=== PATIENT | male | born 1955 | race Caucasian/White ===

== ENCOUNTER 2019-05-26 05:54 | Observation (INO) | payer OTHER ==
--- NOTE | 2019-05-19 12:06 | HP ---
HISTORY AND PHYSICAL: DATE OF ADMISSION/SURGERY: 05/26/19 DATE OF OFFICE VISIT: 05/18/19 SURGEON: Sheba Farias MD * (DICTATED BY TOMAS YOUSSEF) PROCEDURE: Right total hip arthroplasty. CHIEF COMPLAINT: Right hip pain. HISTORY OF PRESENT ILLNESS: Mr. Jamison is a 63-year-old gentleman with end- stage osteoarthritis of the right hip. He has failed conservative treatment and elected to proceed with a right total hip arthroplasty. PAST MEDICAL HISTORY: 1. Diabetes. 2. Hypertension. 3. GERD. 4. High cholesterol. 5. Coronary artery disease. 6. Sleep apnea. PAST SURGICAL HISTORY: 1. Stent placement. 2. CABG. 3. Hernia repair x2. CURRENT MEDICATIONS: 1. Rosuvastatin calcium 10 mg a day. 2. Omeprazole 40 mg a day. 3. Metoprolol 50 mg a day. 4. Metformin 500 mg 3 times a day. 5. Acetamide 10 mg a day. 6. Lisinopril 40 mg a day. 7. Hydrochlorothiazide 25 mg a day. 8. Nitroglycerin 0.4 sublingual as needed. 9. Vitamin D3. 10. Vitamin B. 11. Cialis 20 mg a day as needed. 12. Aspirin 81 mg a day. ALLERGIES: No known drug allergies. FAMILY HISTORY: Coronary artery disease and cancer. SOCIAL HISTORY: He is a 63-year-old gentleman. He lives with his . He does not smoke or use drugs. Uses occasional alcohol. REVIEW OF SYSTEMS: A complete 14-point review of systems was reviewed with the patient. It is positive for diabetes and GERD. He denies history of DVT, PE, hepatitis, HIV, or anesthesia problems. PHYSICAL EXAMINATION GENERAL: He is well developed, well nourished, in no acute distress. VITAL SIGNS: He stands 5 feet 8 inches tall, weighs 220 pounds, his blood pressure is 150/78, his heart rate is 96. HEENT: Normocephalic, atraumatic. NECK: Supple. No palpable lymph nodes. PULMONARY: The lungs are clear to auscultation bilaterally. CARDIO: Regular rate and rhythm. Strong S1, S2. ABDOMEN: Soft, nontender, nondistended. NEUROLOGICAL: He is alert and oriented x3. MUSCULOSKELETAL: Right lower extremity: Skin is intact. There are no open wounds or abrasions. He has 85 degrees of hip flexion. He walks with an antalgic-type gait. He lacks 10 degrees from neutral, has 20 degrees of external rotation, 0 degrees of internal rotation. He is able to dorsiflex and plantar flex. He has 2+ dorsalis pedis pulse and intact sensation. ASSESSMENT AND PLAN: Mr. Jamison is a 63-year-old gentleman with severe end- stage osteoarthritis of the right hip. He has failed conservative treatment and elected to proceed with a right total hip arthroplasty. The surgery is scheduled for 05/26/[address] Farias has discussed the risks and benefits of the surgery at today's visit and all of his questions were answered. He will follow up with Dr. Farias 2 weeks after the surgery. TOMAS YOUSSEF [id number]/CPS #: [id number] MTDAllyssa
[~2019-05-26 05:54] MED LIST: Buffered Lidocaine 1% SYRIN* 1 ML/SYRINGE INTRADERM ONE; Lactated Ringers 1000 ML Bag* 1,000 ML IV SCH
[2019-05-26] MEDS ORDERED: Buffered Lidocaine 1% SYRIN* 1 ML/SYRINGE INTRADERM ONE (06:51)
[2019-05-26] MEDS ORDERED: ceFAZolin 2 GM in NS PREMIX(*) 2 GM/100 ML BAG IVPB ONE (06:51)
[2019-05-26] MEDS ORDERED: Tranexamic Acid 1,000 MG in NS 0.9% 50 ML IV ONE (07:00)
[2019-05-26] MEDS ORDERED: Midazolam* 1 MG/ML 5 ML VIAL (5 MG) ONE (07:34)
[2019-05-26] MEDS ORDERED: fentaNYL* 50 MCG/ML 2 ML VIAL (100 MCG VIAL) ONE (07:34)
[2019-05-26] MEDS ORDERED: Propofol* 10 MG/ML 20 ML BTL ONE ×2 (08:01→10:05)
[2019-05-26] MEDS ORDERED: Bupivacaine 0.5% SDV PF* 30ML VIAL ONE (08:01)
[2019-05-26] MEDS ORDERED: HYDROcodone/ACETAMIN 5-325 MG* 1 TAB PO PRN (08:35)
[2019-05-26] MEDS ORDERED: Naloxone* 0.4 MG/ML 1 ML VIAL IV PRN (08:35)
[2019-05-26] MEDS ORDERED: Ondansetron INJ* 2 MG/ML VIAL IV PRN ×2 (08:35→11:00)
[2019-05-26] MEDS ORDERED: HYDROmorphone INJ1* 1 MG/ML SYRINGE IV PRN (08:35)
[2019-05-26] MEDS ORDERED: Acetaminophen TAB* 325 MG PO PRN ×2 (08:35→11:00)
[2019-05-26] MEDS ORDERED: EPHEDrine (Pressors)* 50 MG/ML VIAL ONE (08:56)
[2019-05-26] MEDS ORDERED: Ondansetron ODT TAB* 4 MG PO PRN (11:00)
[2019-05-26] MEDS ORDERED: diPHENhydraMINE PO* 25 MG PO PRN (11:00)
[2019-05-26] MEDS ORDERED: diPHENhydraMINE IV* 50 MG/ML 1 ml VIAL (BENADRYL) IV PRN (11:00)
[2019-05-26] MEDS ORDERED: Cyclobenzaprine TAB* 10 MG PO PRN (11:00)
[2019-05-26] MEDS ORDERED: oxyCODONE/Acetamin 5/325 MG* TAB PO PRN (11:00)
[2019-05-26] MEDS ORDERED: Magnesium Hydroxide LIQ* 30 ML UDC PO PRN (11:00)
[2019-05-26] MEDS: Lactated Ringers 1000 ML Bag* 1,000 ML IV SCH ×2 (12:49→23:27)
--- NOTE | 2019-05-26 13:45 | PN ---
Progress Note - Progress Note Date of Service: 05/26/19 Note: resting comfortably, mild pain; able to DF/PF, 2+DP pulse and intact sensation; dressing c/d/i
[2019-05-26] MEDS: oxyCODONE/Acetamin 5/325 MG* TAB PO PRN ×3 (13:50→22:09)
[2019-05-26] MEDS ORDERED: Dextrose 50% VIAL 50 ml IV PUSH PRN (14:02)
[2019-05-26] MEDS ORDERED: Nitroglycerin TAB 0.4 MG* 0.4 MG TAB SL PRN (14:02)
[2019-05-26] MEDS: Morphine INJ* 2 MG/ML 1 ML SYRINGE (TWO MG - NEW SYRINGE VERSION) IV PRN ×2 (14:27→15:16)
[2019-05-26] MEDS ORDERED: Morphine INJ* 4 MG/ML 1 ML SYRINGE (NEW SYRINGE VERSION) IV PRN (15:27)
[2019-05-26] MEDS: oxyCODONE TAB* 5 MG TAB PO PRN ×2 (15:48→20:25)
[2019-05-26] MEDS ORDERED: Morphine INJ* 2 MG/ML 1 ML SYRINGE (TWO MG - NEW SYRINGE VERSION) IV ONE (16:00)
--- NOTE | 2019-05-26 16:14 | CONS ---
CONSULTATION REPORT: DATE OF CONSULT: 05/26/19 REQUESTING PROVIDER: Dr. Farias. REASON FOR CONSULT: General co-medical management. HISTORY OF PRESENT ILLNESS: This is a 63-year-old male with past medical history significant for nicole betes, hypertension and coronary artery disease, who was admitted on 05/26/19 status post a right tot al hip replacement after failing conservative outpatient therapy. Hospital Medicine was consulted to help manage his medical conditions during his stay. The patient stated that generally his hemoglobi n A1c is below 6 and he checks his fingersticks several times a week, taking metformin 3 times a day. He also monitors his blood pressure at home and systolically he stays below 140 consistently. The patient was seen at bedside, sitting up in bed, in good spirits. Reported feeling only mild discomfo rt to his right hip. His intentions were to go home later today. He does not have to utilize any st airs to get in and out of the house, will be staying on the first floor of his house. PAST MEDICAL HISTORY: Diabetes type 2, hypertension, GERD, hypercholesterolemia, coronary artery dis ease, sleep apnea, and peptic ulcer. PAST SURGICAL HISTORY: Stent placement, CABG, hernia repair x2. MEDICATIONS: 1. Rosuvastatin 10 mg p.o. q.a.m. 2. Zetia 10 mg p.o. q.p.m. 3. Budesonide 2 sprays nasally at bedtime. 4. Ascorbic acid 500 mg p.o. q.a.m. 5. Metformin 500 mg p.o. t.i.d. 6. Vitamin B 1 cap p.o. q.a.m. 7. Tadalafil 20 mg p.o. at bedtime p.r.n. 8. Pataday 0.2% one drop in both eyes daily. 9. Lisinopril 40 mg p.o. q.a.m. 10. Hydrochlorothiazide 25 mg p.o. q.a.m. 11. Vitamin D 2000 units p.o. q.a.m. 12. CBD oil 1 drop sublingually q.a.m. 13. Aspirin 81 mg p.o. q.a.m. 14. Omeprazole 40 mg p.o. q.a.m. 15. Metoprolol succinate 50 mg p.o. q.a.m. 16. Nitroglycerin 0.4 mg sublingually every 5 minutes as needed. ALLERGIES: No known drug allergies. FAMILY HISTORY: Significant for coronary artery disease and breast cancer. SOCIAL HISTORY: Denies any smoking or recreational substance use. He drinks about 3 alcoholic bever ages a night and he lives with his . REVIEW OF SYSTEMS: A 13-point system review was performed, which was positive for right hip pain, Fo erik catheter draining medium clear yellow urine, but denied any chest pain, shortness of breath, abdo elizabeth pain, nausea, vomiting. PHYSICAL EXAM: Vital Signs: 97.1 Fahrenheit, 61 pulse, 16 respirations, 97% oxygen on room air, 146 /80 blood pressure. General: This is a well-developed gentleman seen sitting up in bed, in no acute distress. Eyes: Conjunctivae pink and moist. PERRLA. EOMs intact. ENT: Mucous membranes moist. Oropharynx clear. Neck is supple. Cardiac: S1, S2 present. Heart rate regular. No murmurs, gall ops, or rubs appreciated. Respiratory: Lung sounds clear throughout bilaterally on room air. No ac cessory muscle use noted. Abdomen is soft, nontender, nondistended with positive bowel sounds x4. M usculoskeletal: 2+ positive pedal pulses in bilateral lower extremities. Cap refill within 3 second s. Able to move all extremities. Skin: Dressing to right hip is clean, dry, and intact. No other r ashes or open areas appreciated. Neurological: Able to dorsi and plantarflex. Sensation intact to light touch. Moves all extremities. Psych: Alert and oriented x3. Thought content organized. DIAGNOSTIC STUDIES/LAB DATA: Pertinent lab data: Blood glucose is 158. Diagnostic studies: Pelvic x-ray showed status post right total hip arthroplasty. ASSESSMENT AND PLAN: My impression is that this is a 63-year-old male with a past medical history si gnificant for diabetes type 2, hypertension and coronary artery disease, who was admitted on 05/26/19 status post a right total hip replacement. 1. Right total hip replacement. PT and OT, pain and bowel management as per Ortho. The patient int ends to go home later today. Placed an order for Lane catheter removal. 2. Hypertension. Postoperative blood pressures have been slightly elevated in the 140s to 150s syst olically, which could be explained by pain. We will hold the hydrochlorothiazide during this admissi on, which he can resume upon discharge. Should continue lisinopril and metoprolol. 3. Coronary artery disease. No signs or symptoms of acute coronary syndrome at this time. Continue metoprolol, rosuvastatin, and nitro as needed. Hold aspirin. 4. Diabetes type 2. Blood sugars have been fairly stable in the 150s. We will recommend blood suga rs a.c. with sliding scale lispro coverage. We will hold metformin during this admission, which he c an resume upon discharge. 5. DVT prophylaxis: As per Ortho, continue apixaban and SCDs. 6. Code status is full code. 7. Disposition is admit inpatient to short-stay surgical. Condition is stable. TIME SPENT: Time spent on the patient is about 60 minutes with half that was spent [id number]. Thank you for allowing us to participate in the care of this patient. We will follow during this adm ission. [id number]/[facility] #: [id number]
[2019-05-26] MEDS: ceFAZolin 1 GM ADVAN(*) 1 GM in NS 0.9% 50 ML* 50 ML IVPB SCH (16:39)
[2019-05-26] MEDS ORDERED: Atorvastatin* 20 MG TAB PO SCH (18:00)
[2019-05-26] MEDS ORDERED: Ezetimibe TAB* 10 MG PO SCH (18:00)
[2019-05-26] MEDS: Insulin LISPRO* 1 UNITS UNIT SUBCUT SCH (18:04)
--- NOTE | 2019-05-26 19:00 | OP ---
Operative Report - Blank - Operative Report Date of Operation: 05/26/19 Note: CHERIE LANDRY 1955 Date Of Surgery: 05/26/19 Sheba Farias MD Cyber Threat Analyst: Yolie MARIN did help throughout the procedure with preparation of the hip, wound retraction, manipulation of the hip, and wound closure. Anesthesiologist: Dr. Arrieta Anesthesia Type: Spinal Preoperative Diagnosis: Right severe degenerative osteoarthritis of the hip Postoperative Diagnosis: As above Procedure Performed: Right Total Hip Arthroplasty Complications: None Specimen: Femoral head and acetabular reamings sent to pathology. Hardware used: This is uncemented Fredy total hip arthroplasty hardware for the femur a size 5 accolade II with 127 neck angle femoral component, for the acetabulum a size 54E trident II tritanium cluster hole shell, one 20 mm screw, for the insert a size 36 E trident X3 polyethylene insert, and for the femoral head a size 36 + 2.5 ceramic biolox V40 femoral head. Brief history/Indication: CHERIE LANDRY was known in clinic and had a history of severe right hip pain. He failed conservative treatment with anti- inflammatories, pain pills, intra-articular injections and physical therapy. He elected to undergo right total hip arthroplasty due to continued pain and decreased quality of life. Radiographs showed severe end stage osteoarthritis of the hip with bone on bone contact. Informed consent was obtained from the patient. He understood the risks of surgery included but were not limited to: bleeding, infection, damage to nearby structures, intraoperative fracture, nerve palsy, failure of the hardware, early loosening, stiffness or loss of motion, dislocation, leg length discrepancy, anesthesia complications, stroke, heart attack, blood clot and . He wished to proceed. Intra-Operative findings: Intraoperatively the patient was noted to have severe loss of cartilage of the acetabulum and femoral head. Description of the Procedure: CHERIE LANDRY was identified in the preanesthesia unit. His right hip was marked as the correct operative side. Informed consent was signed and placed in the chart. The patient was taken to the operating room and placed under anesthesia without complication. A beltran catheter was placed. The patient was placed on the peg board with all bony prominences well padded. The right lower extremity was prepped and draped in the usual sterile fashion. Preoperative time -out was made to correctly identify the patient, side and site. Appropriate intraoperative antibiotics were given within one hour of incision. A standard posterior incision was made and carried sharply down to the lateral fascia. A new 10 blade was used to make an incision in the fascia in line with the skin incision. A charnley retractor was placed. The piriformis and conjoined tendons were identified and elevated off the posterolateral femur using electrocautery. These were tagged with number 5 Ethibond. Next electrocautery was used to make a posterolateral capsular flap and this was tagged with number 5 Ethibonds. The hip was carefully dislocated. Lesser trochanter to the center of the femoral head was measured at 54 mm. The oscillating saw was used to make the femoral neck cut. The femoral head was carefully removed. The femur was retracted anteriorly and the acetabular retractors were placed. Long-handled knife was used to sharply remove any remaining labrum from the acetabular rim. The acetabulum was sequentially reamed up to a size 54. A bleeding subchondral bone bed was obtained. A trial liner was placed and had excellent fit and stability. A 54E cup with one screw was placed and had excellent stability with appropriate anteversion and abduction angle. A size 36E polyethylene liner was impacted into the acetabular shell. The liner was checked for stability and was stable. Next attention was turned to preparation of the femoral canal. A canal finder was used to enter the proximal femur. The femoral canal was sequentially broached up to a size 5 femoral broach trial. A trial neck and 36 + 2.5 trial femoral head was chosen. Lesser trochanter to center of the femoral head measurement was satisfactory. The hip was reduced and taken through a range of motion. The hip was stable in all positions with good soft tissue tension and appropriate leg lengths. The hip was dislocated and all trials were removed. The final implant chosen was a accolade II size 5. This stem was impacted into the femoral canal without difficulty. The stem was stable with appropriate anteversion. The femoral head chosen was a 36 + 2.5 ceramic head. The head was impacted onto the femoral neck without difficulty. The final lesser trochanter to center of the femoral head measurement was satisfactory. The hip was reduced and taken through a range of motion. The hip was stable in all positions with good soft tissue tension and appropriate leg lengths. The hip was copiously irrigated with sterile saline. The previously tagged capsule and tendons were repaired to the posterolateral femur through two trochanteric drill holes. The lateral fascia layer was closed using number 1 vicryls. The rest of the incision was closed in a layered fashion using 0 and 2-0 vicryls. The skin was closed using 3-0 monocryl suture and Dermabond. Sterile adaptic, 4x4s and paper tape was used to cover the incision. The patients anesthesia was reversed without difficulty. He was taken to the PACU in stable condition. Intended weight-bearing will be as tolerated with posterior hip precautions.
[2019-05-26] MEDS: Magnesium Hydroxide LIQ* 30 ML UDC PO SCH (20:25)
[2019-05-26] MEDS: Docusate CAP* 100 MG PO SCH (20:25)
[2019-05-26] MEDS ORDERED: Fluticasone NASAL SPRAY 50MCG* 16 gm SPRAY BTL BOTH NARES SCH (21:00)
[2019-05-27] MEDS: ceFAZolin 1 GM ADVAN(*) 1 GM in NS 0.9% 50 ML* 50 ML IVPB SCH ×2 (01:40→08:10)
[2019-05-27] MEDS: oxyCODONE TAB* 5 MG TAB PO PRN ×2 (01:41→08:16)
[2019-05-27] MEDS: oxyCODONE/Acetamin 5/325 MG* TAB PO PRN (04:42)
[2019-05-27 06:21] LABS: Hematocrit 33 % (42-52); Hemoglobin 11.8 g/dL (14.0-18.0); Mean Platelet Volume 8.5 fL (7.4-10.4); Platelet Count 114 10^3/uL (150-450)
[2019-05-27 06:39] LABS: BUN/Creatinine Ratio 11.6 (8-20); Calcium 8.4 mg/dL (8.6-10.3); EGFR African American 108.3 (>60); EGFR Non-African American 89.5 (>60); Potassium 3.8 mmol/L (3.5-5.0)
[2019-05-27] MEDS: Magnesium Hydroxide LIQ* 30 ML UDC PO SCH (08:15)
[2019-05-27] MEDS: Docusate CAP* 100 MG PO SCH (08:15)
[2019-05-27 08:36] VITALS: BP 132/72
[2019-05-27] MEDS: Insulin LISPRO* 1 UNITS UNIT SUBCUT SCH (08:44)
[2019-05-27] MEDS ORDERED: Pantoprazole TAB * 40 MG TAB PO SCH (09:00)
[2019-05-27] MEDS ORDERED: Metoprolol Succinate XL TAB* 50 MG PO SCH (09:00)
[2019-05-27] MEDS ORDERED: Vitamin B Complex TAB PO SCH (09:00)
[2019-05-27] MEDS ORDERED: Olopatadine 0.2% (NF) 1 DROP BTL BOTH EYES SCH (09:00)
[2019-05-27] MEDS ORDERED: Ascorbic Acid TAB* 500 MG PO SCH (09:00)
[2019-05-27] MEDS ORDERED: Vitamin THERAPEUTIC TAB PO SCH (09:00)
[2019-05-27] MEDS ORDERED: Apixaban* 2.5 MG TAB PO SCH (09:00)
[2019-05-27] MEDS ORDERED: Lisinopril TAB* 10 MG PO SCH (09:00)
[2019-05-27] MEDS ORDERED: Cholecalciferol TAB* 1000 UNITS PO SCH (09:00)
--- NOTE | 2019-05-27 10:23 | DS ---
Orthopedic Discharge Summary - Discharge Summary Date of Admission:05/26/19 Date of Discharge: 05/27/19 Date of Surgery: 05/26/19 Attending Orthopedic Provider: Dr Farias Pre-operative Diagnosis: Right hip osteoarthritis Operative Procedure: right total hip replacement Disposition of Patient: home with outpatient PT Condition of Patient: stable History: CHERIE LANDRY is a 63 year old M with years of increasingly severe right hip pain. Patient has failed conservative management and has elected to undergo a right total hip replacement Hospital Course: CHERIE was admitted to [facility] on 05/26/19. Patient underwent a right total hip replacement without complication followed by a brief recovery in PACU and transfer to the Short Stay Surgical Unit in stable condition. Our hospitalist service, physical therapy and occupational therapy also participated in this patients care. Post-op day 1: Pt felt well pain was well controlled denies CP, SOB, dizziness, nausea. Strongly desires DC home and has an outpatient physical therapist. patient was alert and in no acute distress. Dressing was clean, dry and intact. Operative extremity dorsiflexion and plantarflexion intact, sensation intact to light touch distally , DP2+. Prior to DC: dressing was changed, incision was clean, dry and intact. Patient was deemed to be medically and orthopedically stable for discharge. Physical therapy goals were met. Home Medications Medication Instructions Recorded Confirmed Type Aspirin 81 mg CHEW TAB* 81 mg PO QAM 09/02/15 05/26/19 History Budesonide NASAL (NF) [Rhinocort 2 spray NASAL BEDTIME 09/02/15 05/26/19 History Aqua (NF)] Cholecalciferol TAB* [Vitamin D 2,000 unit PO QAM 09/02/15 05/26/19 History TAB*] Lisinopril TAB* [Prinivil TAB 10 40 mg PO QAM 09/02/15 05/26/19 History MG*] Metoprolol Succinate XL TAB* 50 mg PO QAM 09/02/15 05/26/19 History [Toprol XL TAB*] Olopatadine 0.2% (NF) [Pataday 1 drop BOTH EYES DAILY 09/02/15 05/26/19 History 0.2% (NF)] Tadalafil [Cialis] 20 mg PO BEDTIME PRN 09/02/15 05/26/19 History Hydrochlorothiazide TAB* 25 mg PO QAM 11/13/17 05/26/19 History [Hydrodiuril TAB*] Nitroglycerin TAB 0.4 MG* 0.4 mg SL Q5M PRN 11/13/17 05/18/19 History Rosuvastatin Calcium [Crestor] 10 mg PO QPM 11/13/17 05/26/19 History metFORMIN* [Glucophage 500 MG TAB 500 mg PO TID 11/13/17 05/26/19 History *] Ascorbic Acid TAB* [Vitamin C 500 mg PO QAM 11/19/17 05/26/19 History TAB*] Vitamin B Complex CAP* [B Complex 1 cap PO QAM 02/25/18 05/26/19 History CAP*] Cbd Oil 1 drop SL QAM 05/18/19 05/26/19 History Ezetimibe TAB* [Zetia TAB*] 10 mg PO QPM 05/18/19 05/26/19 History Omeprazole 40 mg PO QAM 05/18/19 05/26/19 History Acetaminophen TAB* [Tylenol TAB*] 650 mg PO Q8HR PRN tab 05/27/19 Rx Apixaban* [Eliquis*] 2.5 mg PO BID #60 tab 05/27/19 Rx Docusate CAP* [Colace Cap*] 100 mg PO BID PRN #90 cap 05/27/19 Rx oxyCODONE/Acetamin 5/325 MG* 1 tab PO Q4H PRN tab MDD 10 05/27/19 Rx [Percocet 5/325 TAB*] oxyCODONE/Acetamin 5/325 MG* 2 tab PO Q4H PRN #70 tab MDD 10 05/27/19 Rx [Percocet 5/325 TAB*] Discharge Instructions following Orthopedic Surgery: Activity: * Weight Bearing as tolerated * Continue physical therapy and occupational therapy exercises as shown * Outpatient physical therapy to start by 05/29. If unable to get appt please discuss with case management in order to get in home PT through the holidays Hip replacements: Continue Hip Precautions- do not cross legs or bend greater than 90 degrees/squat Wound care: * OK to shower on post-op day 3, no bathing, swimming, or submerging wound. * Use gentle soap, pat dry. Cover with gauze, NADER wrap or tape. Call Orthopedic office for: * Increased drainage * Redness * Increased pain * Fever Go to ER with shortness of breath or chest pain. Diet: * Regular diet * Increase fluids and fiber to prevent constipation. * Continue to use stool softeners, call office if no bowel motion within 48 hours. Medications See Home Medication List in your packet for medications that you should take after discharge. DVT Prophylaxis: Eliquis Dosin.5 mg, 1 tab every 12 hours x 30 days . Increases bleeding tendency Pain Control: Percocet Dosin/325 mg 1-2 tabs by mouth every 4-6 hours as needed for pain. Maximum of 10 tabs per day. Hold for sedation and wean off as soon as pain allows Please note that Percocet contains Tylenol (acetaminophen). Maximum daily dose of Tylenol is 4000 mg from all sources. Antibiotics are required prior to any dental work. FOLLOW UP: Follow up with [Jarrett] Within 10-14 days, call for appointment Please call our office with any questions or concerns ([phone]) [facility]
== END 2019-05-27 10:50 | disposition home or self-care (01) ==
LOC: OR 05:54 → INTOOBSV 12:40 → SSU 12:40
PROVIDERS: ADMIT Orthopaedic Surgery Adult Reconstructive Orthopaedic Surgery; ATTEND Orthopaedic Surgery Adult Reconstructive Orthopaedic Surgery
DX: M16.11 Unilateral primary osteoarthritis, right hip (principal); E11.9 Type 2 diabetes mellitus without complications; I10 Essential (primary) hypertension; K21.9 Gastro-esophageal reflux disease without esophagitis; I25.10 Atherosclerotic heart disease of native coronary artery without angina pectoris; G47.30 Sleep apnea, unspecified; K27.9 Peptic ulcer, site unspecified, unspecified as acute or chronic, without hemorrhage or perforation; Z95.5 Presence of coronary angioplasty implant and graft; Z79.899 Other long term (current) drug therapy; Z79.82 Long term (current) use of aspirin; E78.00 Pure hypercholesterolemia, unspecified
CPT/HCPCS: 36415; 72170; 80048; 85014; 85018; 85049; 88304; 88311; 96374; 96375; A9270-GY; C1713; C1776; G0378; J0690; J2250; J2270; J2704; J3010; J3490